=== PATIENT | male | born 1950 | race Caucasian/White ===

== ENCOUNTER 2020-04-15 21:12 | Inpatient (IN) | payer MEDICARE, OTHER ==
--- NOTE | 2020-04-15 22:18 | ED ---
Psych HPI - General Chief Complaint: Psychiatric Symptoms Stated Complaint: Pick-up Order Time Seen by Provider: 04/15/20 21:37 Source: patient Mode of arrival: ambulatory - History of Present Illness Initial Comments: Patient is 69-year-old male presenting to the emergency department for a psychiatric Evaluation. Patient is a court pickup order. Patient brought to the ED via police. 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 Patient continues to ramble on unrelated subjects. Patient denies any suicidal thoughts or ideations. Denies any homicidal thoughts or ideations. Has no other comp laints at this time. - Related Data Allergies Allergy/AdvReac Type Severity Reaction Status Date / Time No Known Allergies Allergy Verified 04/15/20 21:30 Review of Systems ROS Statement: Those systems with pertinent positive or pertinent negative responses have been documented in the HPI. ROS Other: All systems not noted in ROS Statement are negative. Past Medical History Past Medical History: No Reported History Past Surgical History: No Surgical Hx Reported Past Psychological History: Unable to Obtain Smoking Status: Never smoker Past Alcohol Use History: Daily Past Drug Use History: Marijuana General Exam Limitations: no limitations General appearance: alert, in no apparent distress Head exam: Present: atraumatic, normocephalic, normal inspection Eye exam: Present: normal appearance, PERRL, EOMI Pupils: Present: normal accommodation ENT exam: Present: normal exam, normal oropharynx, mucous membranes moist Neck exam: Present: normal inspection, full ROM Respiratory exam: Present: normal lung sounds bilaterally. Absent: respiratory distress, wheezes Cardiovascular Exam: Present: regular rate, normal rhythm, normal heart sounds Extremities exam: Present: normal inspection, full ROM Back exam: Present: normal inspection, full ROM Neurological exam: Present: alert, oriented X3 Psychiatric exam: Present: normal affect, manic Skin exam: Present: warm, dry, intact, normal color Course Vital Signs 04/15/20 21:28 Temperature 98.5 F Pulse Rate 116 H Respiratory 18 Rate Blood Pressure 191/91 O2 Sat by Pulse 97 Oximetry Medical Decision Making - Medical Decision Making Patient is 61-year-old male presents emergency department for psychiatric evaluation. Patient here with a pickup order. EPS related patient. Patient will be admitted for further psychiatric management. Case discussed physician. - Lab Data Result diagrams: 04/17/20 08:33 04/17/20 08:33 Disposition Clinical Impression: Adjustment reaction of adult life Disposition: ADMITTED IP TO THIS HOSP Condition: Good Is patient prescribed a controlled substance at d/c from ED?: No Time of Disposition: 06:41
[2020-04-15] MEDS ORDERED: LORazepam 2 MG/ML INJ IM STA (22:55)
[2020-04-15] MEDS ORDERED: MAGNESIUM HYDROXIDE 2,400 MG/10 ML CUP PO PRN (23:21)
[2020-04-15] MEDS ORDERED: ZIPRASIDONE 20 MG VIAL IM PRN (23:21)
[2020-04-15] MEDS ORDERED: ACETAMINOPHEN TAB 325 MG TAB PO PRN (23:21)
[2020-04-15] MEDS ORDERED: MAG HYDROX/AL HYDROX/SIMETH 30 ML CUP PO PRN (23:21)
[2020-04-15] MEDS ORDERED: LORazepam 2 MG/ML INJ IM PRN (23:24)
--- NOTE | 2020-04-16 10:02 | P.HP ---
Psychiatric H&P - . History & Physical: Allergies Allergy/AdvReac Type Severity Reaction Status Date / Time No Known Allergies Allergy Verified 04/15/20 21:30 Vital Signs Temp 98.6 F 04/16/20 06:28 Pulse 99 04/16/20 06:28 Resp 16 04/16/20 06:28 BP 175/96 04/16/20 06:28 Pulse Ox 98 04/15/20 23:53 Intake & Output 04/15/20 04/16/20 04/16/20 18:59 06:59 18:59 Weight 71.532 kg 04/16/20 09:55 IDENTIFYING DATA: This patient is a 69-year-old male was a dmitted to the mental health unit for acute symptoms of psychosis. HPI: Patient presented to the hospital a petition was completed by his son stating "extreme changes in personality and behavior. Getting arrested. Not paying bills. Multiple noise complaints on account of blasting music. Collecting junk in his yard to constitute light. Aching threats against others. 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 He feels that he is being surveilled by the government. He states that he received a phone call with the series of beeps that were meant to change his brain programming. He indicates he's lost 150 pounds in 2 years. He also reports that he saw an cr on his back porch recently. He states it was a sign from God. He indicates appetite is stable he reports sleeping 8 hours last evening staff report he slept 4 hours. He states that his son lied on the petition he does not require hospitalization or any medication treatment. The patient denies having any other symptoms he denies any history of hypomanic or manic episodes he is endorsing no mood or anxiety symptoms. He lives alone he states he has no firearms at home. PAST PSYCHIATRIC HISTORY: No prior reported inpatient psychiatric admissions, no history of suicide attempts, he reports never been prescribed psychotropic medication. He indicates he is not working with an outpatient clinic at this time. PMH: None reported ALLERGIES: NO KNOWN DRUG ALLERGIES MEDICATIONS: Refer to [facility] CHEMICAL DEPENDENCY HISTORY: The patient reports he will drink 1-3, 42 ounce beers an evening, he uses marijuana on a daily basis, no reported use of illicit drugs other than remote history of cocaine use in the past. He's never been placed in residential treatment for chemical dependency reasons. 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 At first he indicates he is at ninth grade education later he says a 12th grade education. It does not appear to be valid but he reports that he was in the for numerous years in the [employer]. He describes no legal history he reports no abuse history. MENTAL STATUS EXAM: He patient is a male appearing his stated age she is balding he has a luz he is dressed in hospital gowns. Eye contact is intermittent he is hyperactive throughout the session speech is fluent pressured at times animated. He reports grandiose and persecutory delusions throughout the entire session with poor insight into those symptoms. He is reporting no suicidal or homicidal thoughts. He demonstrates no verbal or physical aggressiveness or any involuntary repetitive movements. He is oriented to person place and date's he is able to name the days of the week backwards. STRENGTHS/WEAKNESSES: Strengths: Housing, income weaknesses, current acute symptoms of psychosis, history of alcohol and marijuana use INTELLECTUAL FUNCTIONING: Average IMPRESSIONS: [] 1. Psychosis unspecified, rule out alcohol and cannabis use disorders PLAN: The patient has been admitted to the mental health unit involuntarily. I will complete a second clinical certificate. He is refusing continued hospitalization on a voluntary basis and he is refusing to discuss any medication options to treat his psychosis. He will be seen by internal medicine for routine history and physical exam we will look for lab results vital signs are reviewed. We will initiate monitoring for any alcohol withdrawal. Ativan is available if needed for withdrawal symptoms. Social work will meet with the patient to complete a psychosocial assessment and for discharge planning purposes. We will involve any available support in his treatment and discharge planning as he will allow.
--- NOTE | 2020-04-17 01:39 | P.CONS ---
History of Present Illness - Reason for Consult Consult date: 04/16/20 - History of Present Illness The patient is a 69-year-old male with no known PMH who presented to the ED under police custody due to bizarre behavior. The patient was apparently delusional and acting strangely and was thereby admitted to the mental health unit where he was seen and evaluated earlier today. The patient had flight of ideas and tangentiality and some grandiose delusions throughout the interview. He however noted feeling well and denied any physical complaints. He reported taking no medications at home and having no prior past medical history. He denied chest pain, shortness of breath, fever, chills, cough, nausea, vomiting, abdominal pain, diarrhea, headaches, or dizziness. He reports exercising regularly and being in overall good shape. He reports using marijuana occasionally though denied any additional substance use. Review of Systems Pertinent positives and negatives as discussed in HPI, a complete review of systems was performed and all other systems are negative. Past Medical History Past Medical History: No Reported History Past Surgical History: No Surgical Hx Reported Past Psychological History: Unable to Obtain Smoking Status: Never smoker Past Alcohol Use History: Daily Past Drug Use History: Marijuana Medications and Allergies Allergies Allergy/AdvReac Type Severity Reaction Status Date / Time No Known Allergies Allergy Verified 04/15/20 21:30 Physical Exam Vitals: Vital Signs Temp Pulse Resp BP Pulse Ox 04/16/20 18:00 97.9 F 04/16/20 13:47 98.6 F 108 H 16 161/94 98 04/16/20 13:14 97.3 F L 04/16/20 06:28 98.6 F 99 16 175/96 04/15/20 23:53 98.4 F 99 18 156/88 98 Intake and Output 04/16/20 04/16/20 04/16/20 06:59 14:59 22:59 Other: Weight 71.532 kg General: non toxic, no distress, appears at stated age, normal weight Derm: no unusual rashes/lesions no unusual ecchymoses, warm, dry Head: atraumatic, normocephalic, symmetric Eyes: EOMI, no lid lag, anicteric sclera, pupils equal round reactive to light ENT: Nose and ears atraumatic, no thrush, no pharyngeal erythema Neck: No thyromegaly, no cervical lymphadenopathy, trachea midline, supple Mouth: no lip lesion, mucus membranes moist Cardiovascular: S1S2 reg, no murmur, positive posterior tibial pulse bilateral, no edema, capillary refill less than 2 seconds Lungs: CTA bilateral, no rhonchi, no rales , no accessory muscle use Abdominal: soft, nontender to palpation, no guarding, no appreciable organomegaly, normal bowel sounds Ext: no gross muscle atrophy, muscle strength 5 out of 5 in all 4 extremities grossly, no contractures, Neuro: CN II-XI grossly intact, light touch intact all 4 extremities, finger to nose within normal limits, Psych: Alert, oriented, appropriate affect Assessment and Plan Plan: Marijuana abuse -Advised on importance of cessation Psychosis -As per psychiatry Thank you for allowing us to participate in the care of this patient. We will follow peripherally. Do not hesitate to contact us with questions. Someone can be reached from the [facility] hospitalist group at all hours of the day at [phone].
[2020-04-17 09:31] LABS: Basophils # (A) 0.1 k/uL (0-0.2); Basophils % (A) 1 %; Eosinophils # (A) 0.2 k/uL (0-0.7); Eosinophils % (A) 4 %; HGB 17.1 gm/dL (13.0-17.5); Lymphocytes # (A) 1.3 k/uL (1.0-4.8); Lymphocytes % (A) 25 %; MCH 30.7 pg (25.0-35.0); MCHC 32.3 g/dL (31.0-37.0); MCV 95.2 fL (80.0-100.0); Mean Platelet Volume 7.7; Monocytes # (A) 0.3 k/uL (0-1.0); Monocytes % (A) 7 %; Neutrophils # (A) 3.1 k/uL (1.3-7.7); Neutrophils % (A) 60 %; Platelet Count 200 k/uL (150-450); RBC 5.56 m/uL (4.30-5.90); RDW 13.3 % (11.5-15.5); WBC 5.2 k/uL (3.8-10.6)
[2020-04-17 09:32] LABS: ALT 50 U/L (4-49); AST 69 U/L (17-59); African American GFR (CKD) >90 (>60 ml/min/1.73 sqM); Albumin 4.4 g/dL (3.5-5.0); Alkaline Phosphatase 91 U/L (38-126); Anion Gap 6 mmol/L; Blood Urea Nitrogen 10 mg/dL (9-20); Calcium 9.7 mg/dL (8.4-10.2); Carbon Dioxide 26 mmol/L (22-30); Chloride 104 mmol/L (98-107); Cholesterol 178 mg/dL (<200); Glucose 116 mg/dL (74-99); Non-African American GFR(CKD) >90 (>60 ml/min/1.73 sqM); Potassium 4.1 mmol/L (3.5-5.1); Sodium 136 mmol/L (137-145); Total Protein 7.5 g/dL (6.3-8.2); Triglycerides 64 mg/dL (<150)
[2020-04-17 10:01] LABS: LDL Cholesterol,Calculated 35 mg/dL (0-99)
[2020-04-17 10:07] LABS: HDL Cholesterol 130 mg/dL (40-60)
--- NOTE | 2020-04-17 11:49 | P.PN ---
Progress Note - Text Interval history: The patient is found in his room seated on the floor by the window reading a book. He states that he would like to be released as he can take another 8 hours here. We discussed that he is here on a petition and clinical certificate. He states that on the petition that isn't even his child signature. He reports that the documentation is all falsified. 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 He continues to refuse the idea of using an antipsychotic medication. He states that he will likely not use the court appointed transactional attorney as Juma Early is a good friend of his. Mental status exam: The patient is a male appearing his stated age she seated on the floor he has a towel draped across the top of his head he is dressed in hospital gowns. Eye contact is appropriate speech is fluent spontaneous nonpressured. He continues to describe grandiose and persecutory delusions. He demonstrates no verbal or physical aggressiveness. Thought process is disorganized at times. At other times he can be linear. He does not acknowledge any auditory or visual hallucinations today. He demonstrates no verbal or physical aggressiveness. He demonstrates no involuntary repetitive movements. Insight and judgment are poor. Plan: The patient is refusing antipsychotic medication. We cannot even engage in a discussion as to the potential benefits and side effects of antipsychotic medication. We are awaiting the deferral conference. We will continue to monitor him for safety and encourage participation in the milieu. Vital signs reviewed. Laboratory results reviewed.
[2020-04-17] MEDS: LORazepam 1 MG TAB PO PRN ×2 (12:19→21:02)
[2020-04-17] MEDS ORDERED: LISINOPRIL 20 MG TAB PO STA (13:27)
[2020-04-17] MEDS: METOPROLOL TARTRATE 25 MG TAB PO SCH (16:52)
[2020-04-17 18:54] LABS: Hemoglobin A1C 5.1 % (4.0-6.0)
[2020-04-18] MEDS: METOPROLOL TARTRATE 25 MG TAB PO SCH ×2 (10:34→21:07)
[2020-04-18] MEDS: LISINOPRIL 20 MG TAB PO SCH (10:34)
--- NOTE | 2020-04-18 11:03 | P.PN ---
Progress Note - Text Interval history: The patient is found in the back hallway seated on the floor reading a book. He follows me to an interview room. He indicates his mood is good he continues to state the like to be discharged. He states he is not crazy and doesn't belong here. Appetite is been stable he indicates he was able to sleep last evening. He has been intermittently attending groups. The patient continues to demonstrate some disorganization of thought he continues to demonstrate fairly persecutory thoughts. He is now agreeable to having me initiate a medication and we discussed using Abilify. He has his deferral conference scheduled this afternoon. Mental status exam: The patient is alert he is dressed in a hospital gown and he is wearing a blanket as well. Eye contact is appropriate he is overly bright he is verbose speech is fluent spontaneous he's mildly pressured at times thoughts can be tangential he demonstrates loose associations he demonstrates grandiose and persecutory thoughts. Insight into his symptoms is poor judgment is subsequently impacted. He reports no suicidal or homicidal thoughts. He demonstrates no verbal or physical aggressiveness he demonstrates no involuntary repetitive movements. He is hyperactive and frequently changes position in his chair. Plan: The patient is agreeable to starting Abilify 10 mg daily we will initiate that today. We will await the results of his deferral conference. We will monitor him for safety and encourage participation in the milieu. He remains acutely psychotic and requires continued psychiatric hospitalization. Vital signs reviewed. We reviewed his lab results together.
[2020-04-18] MEDS: ARIPiprazole 10 MG TAB PO SCH (11:36)
[2020-04-18] MEDS: LORazepam 1 MG TAB PO PRN ×2 (11:39→21:07)
[2020-04-19] MEDS: ARIPiprazole 10 MG TAB PO SCH (09:26)
[2020-04-19] MEDS: METOPROLOL TARTRATE 25 MG TAB PO SCH ×2 (09:26→21:46)
[2020-04-19] MEDS: LISINOPRIL 20 MG TAB PO SCH (09:26)
--- NOTE | 2020-04-19 11:25 | P.PN ---
Progress Note - Text Interval history: The patient is found in his room he follows me to an interview room. He expresses some frustration that he is in the hospital. He states that the petition is a false document because those or not the signatures of his children. He states he does not understand why he is here. He indicates that he believes we are keeping him here to help us manage other patients. He continues to have grandiose thoughts that he is under cover with the police department. He reports having some difficulty sleeping last night appetite is stable. Mental status exam: The patient is alert he is dressed in hospital gowns wearing a blanket over top. Hygiene grooming fair. Eye contact is appropriate speech is fluent spontaneous nonpressured. He demonstrates some lability of affect. Initially he appears irritable and frustrated later as the session progresses he demonstrates smiling and then his affect becomes overly bright. He continues to describe persecutory and grandiose type delusions. Insight and judgment are impaired. He is reporting no suicidal or homicidal thoughts. He demonstrates no verbal or physical aggressiveness. He demonstrates no involuntary repetitive movements. Plan: The patient will continue on the Abilify we will titrate the dose if needed. He is complied with 2 doses so far. He is encouraged to participate in the milieu. We will monitor him for safety. There has been no evidence of alcohol withdrawal. We can discontinue CIWA monitoring. He requires continued psychiatric hospitalization.
[2020-04-19] MEDS: LORazepam 1 MG TAB PO PRN ×2 (11:51→21:46)
[2020-04-20] MEDS: METOPROLOL TARTRATE 25 MG TAB PO SCH ×2 (08:04→20:14)
[2020-04-20] MEDS: ARIPiprazole 10 MG TAB PO SCH (08:04)
[2020-04-20] MEDS: LISINOPRIL 20 MG TAB PO SCH (08:04)
--- NOTE | 2020-04-20 10:50 | P.PN ---
Progress Note - Text Interval history: The patient is found in the hallway he follows me to an interview room. He indicates that he feels he is being targeted and treated differently. He feels we are withholding his clothing. He continues to assert that he does not need to be in the hospital and that information on the petition is faults. He reports he slept all night staff report he slept 3 hours. Appetite is stable. He makes several grandiose statements during interview as as well as statements that appear paranoid in nature. He has been complying with the Abilify we discussed titrating the dose further and he is agreeable. Mental status exam: The patient is a male appearing his stated age she is dressed in hospital gowns eye contact is appropriate speech is fluent pressured at times affect is overly bright. He demonstrates some lability of affect. He demonstrates smiling laughter and then some irritability towards the end of the session. He describes paranoid persecutory and grandiose thoughts. He demonstrates no verbal or physical aggressiveness. He demonstrates no involuntary repetitive movements. He does not appear to be experiencing any symptoms of akathisia. Thought process can be linear with ongoing conversation he does become more disorganized. Insight into symptoms is poor judgment as subsequently impacted. He is reporting no suicidal or homicidal thoughts. Plan: The patient will continue on the Abilify will titrated to 15 mg daily. He continues to have the same severity of psychosis. He is directable but does require continued psychiatric hospitalization as the symptoms of psychosis will continue to cause psychosocial dysfunction in an outpatient setting. Vital signs reviewed we will monitor him for safety.
[2020-04-21] MEDS: METOPROLOL TARTRATE 25 MG TAB PO SCH ×2 (09:35→22:03)
[2020-04-21] MEDS: ARIPiprazole 15 MG TAB PO SCH (09:35)
[2020-04-21] MEDS: LISINOPRIL 20 MG TAB PO SCH (09:35)
--- NOTE | 2020-04-21 10:44 | P.PN ---
Progress Note - Text Progress Note Date: 04/21/20 Interval history: Patient was seen wandering the hallways and was directable and agreeable to s peak with chart writer. Patient was fairly directable during interview however was somewhat bizarre and suspicious of chart writer. He asked several times who chart writer was. He claims that he is doing better today with regards his mood is not know why he is in the hospital. He did not offer any overnight complaints and states that he slept well last night. He states that he is taking his medications and has a fair appetite. Patient was asking about discharge. Patient asked chart writer several times what he is doing this weekend and listed off several different activities. At this time patient denies any suicidal or homicidal ideations intent or plan. Denies any Auditory or visual hallucinations. Patient denies any side effects from the medications and has been compliant with meds. Mental status exam: General Appearance: Patient appears to be stated age is alert, directable, and attempts to be cooperative. Somewhat intrusive. Behavior: No agitated behavior. Patient is calm and directable Speech: Patient's speech is fluent and nonpressured. Mood/Affect: Mood is improving mildly, affect is congruent and constricted. Suicidality/Homicidality: Patient denies having any suicidal or homicidal ideation intent or plan. Perceptions: Patient denies any auditory or visual hallucinations. Though content/process: There is no evidence of any delusional thought content and thought process is linear and goal-directed. Preoccupied with discharge. Memory and concentration: AOX3, grossly intact for the purposes of this session Judgment and insight: improving mildly Assessment/Plan: Continue with current diagnosis. Patient continues to meet criteria for inpatient psychiatric admission for symptom stabilization and safety.Patient will be maintained on current psychotropic medication regimen. Monitor for medication compliance and for any psychotropic medication side effects. Will continue to monitor ongoing response to treatment. Encouraged participation in milieu.
[2020-04-22] MEDS: METOPROLOL TARTRATE 25 MG TAB PO SCH ×2 (09:24→21:56)
[2020-04-22] MEDS: ARIPiprazole 15 MG TAB PO SCH (09:24)
[2020-04-22] MEDS: LISINOPRIL 20 MG TAB PO SCH (09:24)
--- NOTE | 2020-04-22 11:18 | P.PN ---
Progress Note - Text Progress Note Date: 04/22/20 Interval history: Patient was seen wandering the hallways and was directable and agreeable to s peak with display card writer. Patient was fairly directable during interview once again. Patient asked display card writer several questions about his outfit and what his plans are for this weekend. Patient claims that "my kids got me in here and I want to leave". He was focused on discharge and spoke about Father's Day coming up. He did not offer any overnight complaints and states that he slept well last night. He states that his mood has been gradually improving. He states that he is taking his medications and has a fair appetite. At this time patient denies any suicidal or homicidal ideations intent or plan. Denies any Auditory or visual hallucinations. Patient denies any side effects from the medications and has been compliant with meds. Mental status exam: General Appearance: Patient appears to be stated age is alert, directable, and attempts to be cooperative. Somewhat intrusive. Behavior: No agitated behavior. Patient is calm and directable Speech: Patient's speech is fluent and nonpressured. Mood/Affect: Mood is improving mildly, affect is congruent and constricted. Suicidality/Homicidality: Patient denies having any suicidal or homicidal ideation intent or plan. Perceptions: Patient denies any auditory or visual hallucinations. Though content/process: There is no evidence of any delusional thought content and thought process is linear and goal-directed. Preoccupied with discharge. Memory and concentration: AOX3, grossly intact for the purposes of this session Judgment and insight: improving mildly Assessment/Plan: Continue with current diagnosis. Patient continues to meet criteria for inpatient psychiatric admission for symptom stabilization and safety.Patient will be maintained on current psychotropic medication regimen. Monitor for medication compliance and for any psychotropic medication side effects. Will continue to monitor ongoing response to treatment. Encouraged participation in milieu.
[2020-04-22] MEDS: LORazepam 1 MG TAB PO PRN (21:56)
[2020-04-23] MEDS: ARIPiprazole 15 MG TAB PO SCH (09:18)
[2020-04-23] MEDS: METOPROLOL TARTRATE 25 MG TAB PO SCH ×2 (09:18→20:09)
[2020-04-23] MEDS: LISINOPRIL 20 MG TAB PO SCH (09:18)
--- NOTE | 2020-04-23 10:57 | P.PN ---
Progress Note - Text Interval history: The patient is found in group he follows me to an interview room. He indicates his mood is good. He continues to not understand why he was admitted. He states he has been speaking with his daughter who is watching his home for him. He has no questions or concerns regarding the Abilify. He indicates that he has been sleeping at night he is eating he has been attending groups. Mental status exam: The patient is a thin male appearing his stated age she is balding he is dressed in his own clothing today eye contact is appropriate he readily engages in conversation. He states his mood is good affect is appropriately reactive. Sometimes his affect is overly bright. Speech is fluent spontaneous nonpressured he is demonstrating no tangential thinking loose associations or flight of ideas today. Insight and judgment improving. He is reporting no auditory or visual hallucinations or any specific delusions spontaneously. He may still harbor some delusional thought that he is not describing. Plan: The patient will continue on his current psychotropic medications. Social work will speak with the patient's daughter to see if she feels he is approximating his functioning baseline. We will continue to monitor him for safety and encourage participation in the milieu. We will consider discharging him in the next 1-2 days if clinically appropriate.
[2020-04-23 14:13] VITALS: BMI 24.2
[2020-04-23] MEDS: LORazepam 1 MG TAB PO PRN (20:11)
[2020-04-24 07:00] VITALS: BP 114/68; PULSE 93; RESP 16
[2020-04-24] MEDS: ARIPiprazole 15 MG TAB PO SCH (07:59)
[2020-04-24] MEDS: LISINOPRIL 20 MG TAB PO SCH (07:59)
[2020-04-24] MEDS: METOPROLOL TARTRATE 25 MG TAB PO SCH (07:59)
--- NOTE | 2020-04-24 11:51 | P.DS ---
Providers Date of admission: 04/15/20 23:10 Expected date of discharge: 04/24/20 Attending physician: Juma Ku Consults: 04/15/20 23:21 Consult Physician Routine Consulting Provider: Philip Prado Consult Reason/Comments: medical management Do you want consulting provider notified?: Yes Primary care physician: Stated None - Discharge Diagnosis(es) (1) Psychosis Current Visit: Yes Status: Acute Priority: High Hospital Course: Brief summary admission note: This patient is a 69-year-old male who was admitted to the mental health unit for acute symptoms of psychosis. The patient presented to the hospital on a petition completed by his son stated the patient was experiencing extreme changes in personality and behavior. The patient wasn't paying his bills he had been in trouble with the police. There were multiple noise complaints. 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 He reported that he had a genius IQ. He described other delusional thoughts. For full details please refer to my psychiatric evaluation dated 04/16/2020. Summary of hospital course: The patient was admitted to the mental health unit involuntarily. A second clinical certificate was completed. The patient's participated in a deferral conference and decided to defer a full court hearing. Initially he refuses psychotropic medication but after several days he was agreeable. We initiated Abilify 10 mg daily and titrated to 15 mg daily. He did demonstrate progressive improvement during the hospitalization once he started to comply with medication. He has been attending groups he has been attending to his activities of daily living. He no longer is spontaneously describing delusional thoughts. He demonstrated no behavioral disturbance. He was seen by internal medicine for routine history and physical exam laboratory values were reviewed. He reported using alcohol up until his admission with [facility] monitoring he demonstrated no evidence of alcohol withdrawal. Social work met with the patient to complete a psychosocial assessment. Social work has been in contact with the patient's daughter those notes were reviewed. At this time the patient appears to be sufficiently stabilized for transition to outpatient care. Mental status exam: The patient is a thin male appearing his stated age, he is balding he wears a mustache he is dressed in his own clothing wearing a T-shirt and jeans. Speech is fluent spontaneous nonpressured he demonstrates no tangential thinking loose associations or flight of ideas. He is reporting no auditory or visual hallucinations he is reporting no specific delusions however some of those thoughts may exist in residual form at this point. He demonstrates no verbal or physical aggressiveness he demonstrates no involuntary repetitive movements. Insight and judgment have improved significantly. He is oriented to person place and date. He readily engages in conversation he's pleasant cooperative and his affect appears euthymic. Impressions 1. Psychosis unspecified, rule out alcohol use disorder rule out cannabis use disorder Plan: The patient will be discharged mental health unit today he will continue on Abilify 15 mg daily. Social work will arrange his outpatient mental health follow-up. The patient's family will continue to check on him after discharge. At this time there is no imminent safety risk is appropriate for transition outpatient care. He does not require inpatient chemical dependency treatment he does not wish to have any medication prescribed for alcohol use. He is instructed to return to the hospital with any acute safety concerns. Patient Condition at Discharge: Stable Plan - Discharge Summary New Discharge Prescriptions: New ARIPiprazole [Abilify] 15 mg PO DAILY #30 tab Metoprolol Tartrate [Lopressor] 25 mg PO BID #60 tab Lisinopril [Zestril] 20 mg PO DAILY #30 tab Discharge Medication List ARIPiprazole [Abilify] 15 mg PO DAILY #30 tab 04/24/20 [Rx] Lisinopril [Zestril] 20 mg PO DAILY #30 tab 04/24/20 [Rx] Metoprolol Tartrate [Lopressor] 25 mg PO BID #60 tab 04/24/20 [Rx] Follow up Appointment(s)/Referral(s): None,Stated [Primary Care Provider] - 1-2 days Activity/Diet/Wound Care/Special Instructions: Activity and diet as tolerated. Avoid the use of street drugs and alcohol. Take all medications as prescribed. When you are in need of refills on your medications please contact your medical provider and/or outpatient psychiatrist to have this done. Please go to scheduled outpatient appointment for aftercare treatment. If symptoms return or become worse, call the crisis line at and/or go to the nearest emergency room for evaluation.
[2020-04-24 14:07] VITALS: TEMP 98.2
== END 2020-04-24 14:04 | disposition home or self-care (01) | DRG 885 ==
LOC: EC 21:12 → 3MHU 23:10
PROVIDERS: ADMIT Psychiatry & Neurology Psychiatry; ATTEND Psychiatry & Neurology Psychiatry
DX: F22 Delusional disorders (principal); F43.20 Adjustment disorder, unspecified; R41.3 Other amnesia; F12.10 Cannabis abuse, uncomplicated; G47.9 Sleep disorder, unspecified; F10.10 Alcohol abuse, uncomplicated; F14.90 Cocaine use, unspecified, uncomplicated; Z53.29 Procedure and treatment not carried out because of patient's decision for other reasons; Z71.3 Dietary counseling and surveillance; Z81.8 Family history of other mental and behavioral disorders; Z81.1 Family history of alcohol abuse and dependence; Z81.3 Family history of other psychoactive substance abuse and dependence
CPT/HCPCS: 80053; 80061; 82075; 83036; 84443; 85025; 96372; 99284